=== PATIENT | female | born 1955 | race Two or more races ===

== ENCOUNTER → 2024-10-10 10:20 | Outpatient (REF) | payer MEDICARE, BC, SELFPAY | LOC: SDSPAT 10:20 | PROVIDERS: ATTENDING PHYSICIAN Obstetrics & Gynecology Gynecologic Oncology; FAMILY PHYSICIAN Internal Medicine | DX: N75.0 Cyst of Bartholin's gland (principal) | CPT/HCPCS: 36415; 86850; 86900; 86901; 93005 ==

== ENCOUNTER 2024-10-14 06:26 | Inpatient (IN) | payer MEDICARE, SELFPAY ==
[2024-10-10 13:22] VITALS: BMI 21.1
--- NOTE | 2024-10-12 18:22 | W.CON.GYNONC ---
Chief Complaint
-
right vulvar cyst/mass
History of Present Illness
69�year�old��woman�presenting�for�consultation�regarding�Bartholin�cyst.Over�the�last�7�to�10�years�patient�has�had�cyst
present�along�the�right�vulva,�approximately�6�years�ago�she�had�an�infection�and�dislocation,�office�drainage�was�performed�and�the
patient�has�been�observed�since�then.�Of�note�she�also�has�pelvic�organ�prolapse�managed�with�pessary�chronically.�She�denies any�vaginal�bleeding�or�discharge.
MRI�performed�March�2�shows�well�defined�Bartholin�cyst�right�of�the�midline�containing�fluid/fluid�level,�the�cyst�measures
2.7�cm�in�size�suspected�2.7�x�2.1�x�1.7�cm,�it�contains�highly�proteinaceous�material�or�hemorrhagic�changes,�there�is�no significant�pericystic�inflammatory�changes.�And�there�is�no�suspicious�enhancement�associated�with�the�cyst.�The�remainder�of
the�pelvis�reveals�a�small�and�retroverted�uterus,�endometrial�stripe�is�unremarkable�there�is�no�masses�in�the�uterus.�Both�ovaries are�small,�no�adnexal�masses�appropriate.
Has�medical�history�significant�for�osteoporosis�arthralgia�of�elbow,�history�of�colonic�polyp,�malignant�melanoma�left�lower extremity,
Past�surgical�history�includes�breast�cyst�aspiration,�left�shoulder�surgery,�skiing�accident,�tonsillectomy�as�well�as�excision�of melanoma. Family�history�significant�for�paternal�grandmother�with�breast�cancer
Patient�is�,�denies�tobacco�drug�or�marijuana�use.�She�drinks�alcohol�socially�approximately�3�glasses�of�wine�per�week
Allergies No�Known�Allergies
Medications
alendronate�10�mg�tablet q�week
Lumigan�0.01�%�eye�drops 1�drop�each�eye
timolol�0.25�%�eye�drops 1�eye�each�day
Medical History
Allergies
Allergies reflect when allergies were last updated in [facility].
No Known Allergies Allergy (Unverified 09/30/24 14:04)
Physical Exam
Physical Exam
Pelvic�Examination: External�normal�labia,�urethra,�anus.�There�is�a�palpable�3�to�4�cm�cystic�mass�at�the�location�of�the�Bartholin's,�right�labia�majora. Remainder�of�the�vulva�is�unremarkable
Vagina:�Normal�mucosa.�Pessary�present,�it�was�removed�washed�and�replaced�at�the�end�of�the�exam Cervix:�normal�appearance,�no�discharge.�Pap�smear�including�ecto�and�endocervical�specimen�was�obtained Uterus:�normal�size.� Adnexa:�No�pelvic�mass.�
RVE:�no�masses�or�nodularity General:�Well�developed,�well�nourished�patient.�In�no�acute�distress. Neck:�No�thyromegaly.�No�cervical�lymphadenopathy. Lungs:�Clear�to�auscultation.�Good�air�movement�bilaterally.
Cardiac:�Regular�rate.�Regular�rhythm.�No�murmurs�appreciated. Right�Breast:�No�masses�or�dimpling.�No�nipple�discharge. Left�Breast:�No�masses�or�dimpling.�No�nipple�discharge. Abdomen:�Abdomen�is�soft.�Non�tender�to�palpation.�Non�distended.
Extremities:�No�edema. Hematologic/Lymphatic:�No�palpable�lymphadenopathy. Musculoskeletal:�Normal�range�of�motion.�Strength�and�Tone�are�normal. Skin:Non�jaundiced.�No�petechia.�No�purpura.
Neurologic:�Speech�is�fluent.�Normal�gait�and�station.�Cranial�nerves�intact.
Impression / Plan
-
This�patient�has�symptomatic�enlargement�of�pre�existing�Bartholin�cyst.�We�discussed�general�indications�for�operative intervention.�Given�the�fact�that�she�has�increasing�symptoms�it�is�reasonable�to�offer�her�surgery.
MRI�of�the�pelvis�including�vulva�will�be�repeated�in�order�to�exclude�possibility�of�any�solid�components�within�the�cyst
Plan�of�surgery�would�be�to�perform�excision�of�right�lower�Bartholin's�gland,�explained�the�surgery�to�her�in�detail,�surgery�will�be done�at[facility]under�general�anesthesia I�will�schedule�surgery�Susu�
Risks�including�infection�bleeding�injury�to�adjacent�organs�DVT�pulmonary�embolism�and�cardiovascular�complications�were
discussed�and�reviewed,�patient�signed�informed�consent�in�the�office�today.�We�reviewed�postoperative�care.�I�reviewed�with�her
that�during�the�postoperative.�Pessary�should�be�left�outside�and�she�will�reinsert�after�3�to�4�weeks�once�adequate�healing�has taken�place.
Because�of�primary�history�of�melanoma�in�the�past�and�her�ethnicity�of�the�patient�being�Ashkenazi�[place],�I�did�recommend germline�testing�for�BRCA�1�and�2�mutations.�She�will�consider�and�discuss�with�me�later.�Of�note�the�patient�does�see
dermatology�on�regular�basis
[2024-10-14] VITALS (10 sets, daily range): BP systolic 109–157; BP diastolic 50–68; BMI 21.1
[2024-10-14] MEDS: TYLENOL 1000 MG PO (08:59)
[2024-10-14] MEDS: NORMOSOL-R/PLASMALYTE-A 1000 IV (08:59)
[2024-10-14] MEDS: NEURONTIN 300 MG PO (08:59)
[2024-10-14] MEDS: CELEBREX 200 MG PO (08:59)
[2024-10-14] MEDS: HEPARIN 5000 UNITS SC (09:35)
--- NOTE | 2024-10-14 11:44 | OR.RPT ---
Operative Report
Operative Report
Preoperative diagnosis: Enlarging right Bartholin's cyst/mass
Postop diagnosis: Same
Procedure: Excision of right Bartholin gland, partial radical vulvectomy
Surgeon: Jassi Balderrama MD
Assist: Sri Ortiz PA-C
Anesthesia: General LMA intubation plus local
Estimated blood loss 25 cc
Complication: None
Specimen: Right Bartholin's cyst
Procedure in detail this patient was brought to the operating room and placed in supine position, general anesthesia was administered and LMA intubation was performed. Her arms were rested on armrests, she was placed in lithotomy position using
yellowfin stirrups, hair involving the perineum and genital region was clipped. She was prepped with ChloraPrep on the vulva and upper thighs and mons pubis and Betadine and vagina. The patient was draped. Timeout procedure was carried out she
received Ancef 2 g for prophylaxis. On clinical examination there is a 4 cm mass involving posterior aspect of right labia extending deep into the subcutaneous tissue and superiorly toward anterior vulva. It is mobile and it separate from rectal
sphincter. The remainder of the exam including urethral meatus, anus, left labia majora and minora are within normal limits. There is no skin lesions visible on the right labia.
I marked an incision essentially along the curvature of right labia majora from anterior aspect of right labia down to perineal body, this incision was infiltrated with 10 cc mixture of 1% lidocaine with epinephrine. Incision was made with #15
blade on the skin and subcutaneous tissue. I used sharp dissection with electrocautery as well as hemostats to free up some of the subcutaneous tissue on the right and left and superior aspect of this cystic mass. I used vessel sealer to seal and
divide pedicles right and left anterior and posterior to the mass until the mass was completely free. I then used my finger which was placed in the rectum to ensure that on the posterior aspect there is no injury to the rectum. We were able to use
the vessel sealer again just close to the cystic mass and away from rectal sphincter and rectal wall to separate the cystic mass completely and excise it and this was handed off to pathology. Good hemostasis was present, 2 small bleeding vessels at
the base was controlled with [id number] sutures of 3-0 Vicryl. I used additional 3-0 Vicryl suture to close the deep defect in this space with interrupted sutures. Once this was completed I reapproximated the skin with a series of horizontal
mattress sutures using 3-0 Monocryl along the length of the incision. We went ahead and put a couple of the sutures just to reapproximate the skin edges where there was some tension and separation. Vagina was completely without any tears or
interruptions. I infiltrated along the pudendal nerve with approximately 15 cc of 0.5% bupivacaine, the incision was cleaned perineum was cleaned. Examination of vagina and rectum shows intact structures with no injuries. Silvadene was applied to
the incision and dressing was applied. Patient was awakened extubated and returned back to recovery room stable awake and extubated condition. Counts of laps instruments and needle was correct x 2. I was present and scrubbed for entire procedure
as dictated above.
Disposition to PACU alert awake extubated
--- NOTE | 2024-10-21 10:29 | W.PN.UPDATE ---
Update Note
Progress Note Update
This patient underwent right-sided partial radical vulvectomy.
As per Medicare remove, this procedure is intended for inpatient. An admission order was considered and placed postoperatively.
The patient was assessed after a few hours in the recovery room and she desired to go home and did not wish to stay in the hospital.
As a result I did not place an inpatient admission order. The patient was discharged from postoperative care unit.
== END 2024-10-14 13:20 | disposition home or self-care (01) | DRG 747 ==
LOC: PACUI 06:26
PROVIDERS: ADMITTING PHYSICIAN Obstetrics & Gynecology Gynecologic Oncology
PROC: 0UBM0ZZ Excision of Vulva, Open Approach (ICD-10-PCS; 2024-10-14)
DX: N75.0 Cyst of Bartholin's gland (principal); M81.0 Age-related osteoporosis without current pathological fracture; N81.89 Other female genital prolapse; Z85.820 Personal history of malignant melanoma of skin
CPT/HCPCS: 56630; 88304; 86900; 86901; C1776